=== PATIENT | female | born 1965 | race Caucasian/White ===

== ENCOUNTER 2023-06-21 22:27 | Emergency (ER) | payer MEDICAID ==
[~2023-06-21] VITALS: Ht 165.1 cm; Wt 85.3 kg
[2023-06-21] MEDS ORDERED: IBUPROFEN 400 MG TABLET ONE (22:45)
[2023-06-21] MEDS ORDERED: IBUPROFEN 400 MG TABLET PO ONE (23:00)
[2023-06-21] MEDS ORDERED: IBUP-1957 PO (23:39)
[2023-06-22 00:13] VITALS: BP 138/78; TEMP 98.1; O2SAT 98
== END 2023-06-22 00:15 | disposition home or self-care (01) ==
LOC: ER 22:29
DX: S83.92XA Sprain of unspecified site of left knee, initial encounter (principal); S93.602A Unspecified sprain of left foot, initial encounter; S20.212A Contusion of left front wall of thorax, initial encounter; S09.90XA Unspecified injury of head, initial encounter; I10 Essential (primary) hypertension; V89.2XXA Person injured in unspecified motor-vehicle accident, traffic, initial encounter; Y93.89 Activity, other specified; Y92.89 Other specified places as the place of occurrence of the external cause; Y99.8 Other external cause status
CPT/HCPCS: 70450-TC; 71045-TC; 73564-TC; 73630-TC